=== PATIENT | male | born 1960 | race Caucasian/White ===

== ENCOUNTER 2018-06-23 03:05 | Emergency (ER) | payer BC ==
[2018-06-23 03:15] VITALS: TEMP 96.1
[2018-06-23] MEDS ORDERED: ASPIRIN TABLET 325 MG TAB PO ONE (03:15)
[2018-06-23] MEDS ORDERED: ASPIRIN TABLET 325 MG TAB ONE (03:23)
[2018-06-23] MEDS ORDERED: ASPIRIN (CHEWABLE) 81 MG TAB PO ONE (03:27)
--- NOTE | 2018-06-23 03:54 | ED.PDOC ---
History of Present Illness - General Chief Complaint: Chest Pain/MA Stated Complaint: chest pain Time Seen by Provider: 06/23/18 03:27 Source: patient Exam Limitations: no limitations - History of Present Illness Initial Comments: patient comes in today for sudden onset of chest pressure. Patient stated that he fell asleep on the couch and woke up about midnight. When he tried to go to bed he couldn't rest and was thinking about several things that are ongoing in his life. Patient about 3:00 started feeling chest tightness on the left side of his chest with no radiation, nausea, or diaphoresis. Patient denies shortness of breath, cough, or wheezing. He's had this feeling once before with her anxiety several years ago. Patient does not have a cardiac history and has no family history of coronary artery disease. He does not smoke, drinks very occasionally, and does not take illicit drugs. Patient is otherwise healthy and has no significant past medical history. Although on arrival he still had some chest discomfort currently he is asymptomatic. Timing/Duration: 1/2 hour Severity/Quality: moderate, pressure Location: substernal Chest Pain Radiation: no radiation Activities at Onset: emotional stress, rest Prior Chest Pain/Cardiac Workup: no prior cardiac workup Improving Factors: nothing Worsening Factors: nothing Nitro Today/Relief: no nitro taken today Aspirin Treatment Today: 325 mg x 1, provided by ED Associated Symptoms: denies symptoms Allergies/Adverse Reactions: Allergies NO KNOWN ALLERGY Allergy (Verified 06/23/18 03:08) Review of Systems - Review of Systems Constitutional: States: no symptoms reported. Denies: fever, malaise, weakness EENTM: States: no symptoms reported. Denies: eye pain, ear pain, throat pain Respiratory: States: no symptoms reported. Denies: cough, short of breath, wheezing Cardiology: States: chest pain. Denies: edema, palpitations, syncope Gastrointestinal/Abdominal: States: no symptoms reported. Denies: abdominal pain, diarrhea, vomiting Genitourinary: States: no symptoms reported. Denies: discharge, frequency, hematuria, pain Musculoskeletal: States: no symptoms reported Skin: States: no symptoms reported Neurological: States: no symptoms reported Past Medical History (General) - Patient Medical History Hx Stroke: No Hx Cardiac Disorders: No Hx Hypertension: No Hx Diabetes: No Surgical History: other - Vaccination History Hx Tetanus, Diphtheria Vaccination: Yes Hx Influenza Vaccination: Yes Hx Pneumococcal Vaccination: No Family Medical History - Family History Mother Family History: Unknown Physical Exam - Physical Exam General Appearance: Alert, No apparent distress Eyes, Ears, Nose, Throat Exam: PERRL/EOMI, normal ENT inspection, pharynx normal Neck: non-tender Respiratory: chest non-tender, lungs clear, normal breath sounds, no respiratory distress Cardiovascular/Chest: normal peripheral pulses, regular rate, rhythm, no edema, no gallop, no JVD, no murmur Peripheral Pulses: radial,right: 2+, radial,left: 2+, posterior tibialis,right: 2+, posterior tibialis,left: 2+ Gastrointestinal/Abdominal: normal bowel sounds, non tender, soft, no organomegaly Extremity: normal range of motion, non-tender Neurologic: alert, oriented x 3 Skin Exam: normal color Progress - Progress Progress: 06/23/18 04:45 06/23/18 03:30 EKG STAT Laboratory Results WBC 3.6 K/mm3 (4.8-10.8) L 06/23/18 03:27 RBC 4.84 M/mm3 (4.70-6.10) 06/23/18 03:27 Hgb 14.4 gm/dL (14.0-18.0) 06/23/18 03:27 Hct 42.7 % (42.0-52.0) 06/23/18 03:27 MCV 88.2 fl (80.0-94.0) 06/23/18 03:27 MCH 29.8 pg (27.0-31.0) 06/23/18 03:27 MCHC 33.7 g/dL (33.0-37.0) 06/23/18 03:27 RDW 14.4 % (11.5-14.5) 06/23/18 03:27 Plt Count 139 K/mm3 (130-400) 06/23/18 03:27 MPV 8.8 fl (7.40-10.4) 06/23/18 03:27 Absolute Neuts (auto) 2.30 K/uL (1.8-6.8) 06/23/18 03:27 Absolute Lymphs (auto) 0.80 K/uL (1.0-3.4) L 06/23/18 03:27 Absolute Monos (auto) 0.40 K/uL (0.2-0.8) 06/23/18 03:27 Absolute Eos (auto) 0.10 K/uL (0.0-0.4) 06/23/18 03:27 Absolute Basos (auto) 0.00 K/uL (0.0-0.1) 06/23/18 03:27 Neutrophils % 64.1 % (42.0-78.0) 06/23/18 03:27 Lymphocytes % 22.2 % (20.0-50.0) 06/23/18 03:27 Monocytes % 11.0 % (2.0-9.0) H 06/23/18 03:27 Eosinophils % 2.2 % (1.0-5.0) 06/23/18 03: Basophils % 0.5 % (0.0-2.0) 06/23/18 03:27 PT 10.8 SECONDS (9.3-10.7) H 06/23/18 03:27 INR 1.08 (0.9-1.15) 06/23/18 03:27 PTT (SP) 25.7 SECONDS (21.8-31.6) 06/23/18 03:27 Sodium 140 mmol/L (135-145) 06/23/18 03:27 Potassium 4.1 mmol/L (3.6-5.0) 06/23/18 03:27 Chloride 109 mmol/L (101-111) 06/23/18 03:27 Carbon Dioxide 25 mmol/L (21-31) 06/23/18 03:27 Anion Gap 10.1 (12-18) L 06/23/18 03:27 BUN 13 mg/dL (7-18) 06/23/18 03:27 Creatinine 0.82 mg/dL (0.6-1.3) 06/23/18 03:27 BUN/Creatinine Ratio 15.9 (10-20) 06/23/18 03:27 Random Glucose 99 mg/dL (70-105) 06/23/18 03:27 Serum Osmolality 279.5 mOsm/L (275-295) 06/23/18 03:27 Calcium 8.6 mg/dL (8.4-10.2) 06/23/18 03:27 Magnesium 1.8 mg/dL (1.8-2.5) 06/23/18 03:27 Creatine Kinase 135 IU/L (38-174) 06/23/18 03:27 CK-MB (CK-2) 2.4 ng/mL (0.0-4.4) 06/23/18 03:27 CK-MB (CK-2) % Not Reportable 06/23/18 03:27 Troponin I < 0.02 ng/mL (0.01-0.05) 06/23/18 03:27 06/23/18 04:45 Patient feels good and has no chest pain at this time. Will check repeat Troponin I at 0530 and if normal and still asymptomatic will let him go home with follow up with PCP. He understands that this still needs to be followed up and further testing may be necessary. He also understands that he should return to ER for return of chest pressure/pain, shortness of breath, or diaphoresis. Follow up with PCP on Monday. 06/23/18 06:14 patient remains asymptomatic and second Troponin was normal. will discharge. - EKG/XRAY/CT EKG: Perico, Sinus, no ST T wave changes Comments: HR 57 with normal axis, low voltage XRAY: chest Xray Comments: normal, no acute changes Departure - Departure Clinical Impression: Chest pain Qualifiers: Chest pain type: unspecified Qualified Code(s): R07.9 - Chest pain, unspecified Disposition: Discharge to Home or Self Care Condition: Good Departure Forms: ED Discharge - Pt. Copy, Patient Portal Self Enrollment Instructions: DI for Chest Pain Diet: regular diet Activity: other - see instructions Additional Instructions: return to ER for return of chest pressure/pain, shortness of breath, or diaphoresis. Follow up with PCP on Monday. No strenuous activity until follow up with PCP
--- NOTE | 2018-06-23 04:24 | RAD ---
EXAM DESCRIPTION: Single view of the chest CLINICAL HISTORY: chest pain COMPARISON: None. FINDINGS: Single frontal view of the chest. The cardiomediastinal silhouette has normal size and contour. No consolidation, pneumothorax, or pleural effusion. No displaced rib fractures identified. Leads overlie the chest. Upper abdominal soft tissues are unremarkable. IMPRESSION: 1. No acute pulmonary process identified. Electronically signed by: Jaiden Norris 06/23/2018 4:22 AM CDT
[2018-06-23 06:33] VITALS: BP 109/73; O2SAT 98
== END 2018-06-23 06:30 | disposition home or self-care (01) ==
LOC: ER 03:05
DX: R07.9 Chest pain, unspecified (principal)